=== PATIENT | male | born 1990 | race Caucasian/White ===

== ENCOUNTER 2022-10-19 19:50 | Emergency (ER) | payer OTHER, SELFPAY ==
[2022-10-19 20:09] VITALS: BP 138/91; PULSE 65; RESP 16; TEMP 36.6; O2SAT 98; BMI 30.1
--- NOTE | 2022-10-19 20:36 | ED.UPPEXIN ---
HPI - Extremity Injury (Upper) General Chief Complaint: Extremity Pain/Injury, Upper Stated Complaint: Possible torn bicep Time Seen by Provider: 10/19/22 20:07 History of Present Illness HPI narrative: This 32-year-old male comes in with an injury to his left upper extremity. 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 He has a deformity typical of a biceps rupture. He does not report any other injury. Related Data Home Medications Medication Instructions Recorded Confirmed dextroamphetamine-amphetamine 30 30 mg PO DAILY 10/19/22 10/19/22 mg tablet (Adderall) Previous Rx's Medication Instructions Recorded hydrocodone 5 mg-acetaminophen 325 1 tab PO Q4-6H PRN pain #15 tabs 10/19/22 mg tablet Allergies Allergy/AdvReac Type Severity Reaction Status Date / Time No Known Drug Allergies Allergy Verified 10/19/22 20:09 Review of Systems Status of ROS: Reports: 10 or more systems reviewed and unremarkable except as noted in History and below Narrative: Constitutional: No fevers, no weight gain or loss. Eyes: No discharge. No vision changes. HENT: No congestion, no sore throat, no ear pain. Cardiovascular: No chest pain, no palpitations. Respiratory: No shortness of breath, no wheezes, no cough. Gastrointestinal: No abdominal pain, no vomiting, no diarrhea. Genitourinary: No dysuria, no hematuria. Musculoskeletal: Left bicep it injury as described above. Skin: No rashes, no pruritis. Neurological: No dizziness, weakness, sensory change, speech change. Endo/Heme/Allergies: No bruising or bleeding. No polydipsia. Pysch: no suicidality, no anxiety, no insomnia. All other systems reviewed and are negative. Exam Narrative: Exam Narrative: Constitutional: Well-developed, well-nourished, no acute distress. HEENT: Normocephalic, atraumatic. Neck: Normal range of motion. Nontender. Supple. Heart: Regular. No murmurs. Normal rate. Intact distal pulses. Lungs: Clear to auscultation. No chest discomfort. No wheezes, rhonchi, or rales. Abdomen: Normal bowel sounds. Nontender. No rebound tenderness. Genitalia: Deferred. Back: No midline tenderness. Normal range of motion. Extremities: Pain in the distal portion of the left biceps mechanism. There is a palpable step-off at the biceps tendon near the elbow. The belly of the muscle remains contracted in the more proximal portion of the anterior upper extremity despite extending his arm at the elbow. Skin: Intact. No rash. Warm. No erythema or pallor. Neurologic: No altered sensation. No weakness. Alert and oriented. Psychiatric: No suicidality. No anxiety or depression. No insomnia. Nursing notes and vitals signs are reviewed. Const: Vital Signs, click to edit/add: Vital Signs - 24 hr 10/19/22 20:09 Temperature 97.8 F Pulse Rate [Pulse Oximeter] 65 Respiratory Rate 16 Blood Pressure [Ri t Upper Arm] 138/91 H Pulse Oximetry 98 Oxygen Delivery Me thod Room Air Course Vital Signs Vital signs: Initial Vital Signs Temperature 97.8 F 10/19/22 20:09 Temperature Source Temporal Artery Scan 10/19/22 20:09 Pulse Rate 65 10/19/22 20:09 Respiratory Rate 16 10/19/22 20:09 Blood Pressure 138/91 H 10/19/22 20:09 Blood Pressure Mean 106 H 10/19/22 20:09 Pulse Oximetry 98 10/19/22 20:09 Oxygen Delivery Method Room Air 10/19/22 20:09 Vital Signs Temperature 97.8 F 10/19/22 20:09 Pulse Rate 65 10/19/22 20:09 Respiratory Rate 16 10/19/22 20:09 Blood Pressure 138/91 H 10/19/22 20:09 Pulse Oximetry 98 10/19/22 20:09 Oxygen Delivery Method Room Air 10/19/22 20:09 Temperature 97.8 F 10/19/22 20:09 Pulse Rate 65 10/19/22 20:09 Respiratory Rate 16 10/19/22 20:09 Blood Pressure 138/91 H 10/19/22 20:09 Pulse Oximetry 98 10/19/22 20:09 Oxygen Delivery Method Room Air 10/19/22 20:09 MDM - Extremity Injury (Upper) MDM Narrative Medical decision making narrative: This patient comes in with an injury suggestive of a biceps tendon rupture. I did use bedside ultrasound to compare left with right and there is a step-off noted near the elbow aspect of the biceps mechanism. I spoke with Ortho physician's assistant director of public works semi conductor assembler regarding this injury. The patient will receive a phone call tomorrow to arrange an appointment for evaluation and treatment of this injury. The patient received a sling and prescription for Alpha. Discharge Plan Discharge Clinical Impression: Biceps tendon rupture Patient Disposition: Home w/ Parent or Adult Condition: Unchanged Additional Instructions: Wear sling as needed. Take pain medicine also as needed and directed. Orthopedic clinic staff will call to arrange an appointment for ongoing management. Prescriptions: New hydrocodone-acetaminophen 5-325 mg tablet 1 tab PO Q4-6H PRN (Reason: pain) Qty: 15 0RF No Action dextroamphetamine-amphetamine [Adderall] 30 mg tablet 30 mg PO DAILY Stand Alone Forms: Dr. Jerry's Smooth Move Info Instructions
== END 2022-10-19 20:51 | disposition home or self-care (01) ==
PROVIDERS: Emergency Provider Emergency Medicine Emergency Medical Services
DX: M66.822 Spontaneous rupture of other tendons, left upper arm (principal); X50.0XXA Overexertion from strenuous movement or load, initial encounter
CPT/HCPCS: 99283; 99284

== ENCOUNTER 2022-10-28 06:29 | Day surgery (SDC) | payer OTHER, SELFPAY ==
[2022-10-28] VITALS (13 sets, daily range): BP systolic 111–145; BP diastolic 75–105; PULSE 57–82; RESP 14–18; TEMP 36.1–36.9; O2SAT 95–100; BMI 30.1
--- NOTE | 2022-10-28 | CRLHL7_ITS ---
For Patients: As a result of the Cures Act, medical imaging exams and procedure reports are released immediately into your electronic medical record. You may view this report before your referring provider. If you have questions, please contact your health care provider. Indication: BICEP TENDON REPAIR INTRA OP Technique: Two fluoroscopic images of the left elbow. Fluoroscopic time 14.6 seconds. IMPRESSION: Fluoroscopic guidance for biceps tendon repair. Dictated by Genaro Madrid MD @ 10/28/2022 11:53:51 AM (Electronically Signed)
[2022-10-28] MEDS: SODIUM CHLORIDE 0.9 % (FLUSH) 10 ML SYRINGE IVF (06:45)
[2022-10-28] MEDS: LACTATED RINGERS 1000 ML 1,000 ML 100 ML IV (06:45)
[2022-10-28] MEDS: MIDAZOLAM HCL 1 MG/ML inj IVP (07:24)
[2022-10-28] MEDS: fentaNYL 100 MCG/2 ML inj IVP (07:24)
--- NOTE | 2022-10-28 07:29 | W.PM.H&PU ---
History & Physical Update History & Physical Update H&P Reviewed and patient assessed: No changes noted
--- NOTE | 2022-10-28 07:40 | SUR.PREOP ---
TIME?OUT:?0720 PT/RN/MDA?VERIFICATION?OF?SURGICAL?SITE,?PROCEDURE,?AND?CONSENT OBTAINED?PRIOR?TO?INVASIVE?PROCEDURE.
--- NOTE | 2022-10-28 07:42 | P.ORPRC_ITS ---
Procedure Note Date of procedure: 10/28/22 Procedure: PREOPERATIVE DIAGNOSIS: 1. Left distal biceps rupture POSTOPERATIVE DIAGNOSIS: 1. Left distal biceps rupture PROCEDURE: 1. Left distal biceps repair SURGEON: Leon Balderrama MD. CAROUSEL OPERATOR: Fiorella Gillette P.A.-C. - Of note, an recycling assistant was critical for this case to aid in patient positioning, tissue retraction, limb manipulation/positioning, and closure. ANESTHESIA: General with axillary nerve block IMPLANTS: Arthrex biceps button implant and a 7 mm x 10 mm peek tenodesis screw TOURNIQUET: Not used ESTIMATED BLOOD LOSS: 25 mL COMPLICATIONS: None evident FINDINGS: Distal biceps tendon avulsion with retraction of biceps tendon proximally 5 cm. INDICATIONS: The patient is a pleasant 32-year-old male who sustained a distal biceps tendon avulsion injury while at work a little over week prior to surgery. Recommendation was subsequently made for surgical repair to restore function of the biceps. Prior to surgery, the risks and benefits of procedure were discussed with patient, all questions were answered, and informed consent was obtained. DESCRIPTION OF PROCEDURE: Following a thorough discussion of risks, benefits, and alternatives consent was obtained and the operative site was marked. An axillary nerve block was performed by anesthesia staff. The patient was then brought to the operating room and placed supine on the operating table. Induction of anesthesia was undertaken. IV Ancef was administered within 1 hr o f incision preoperatively for prophylaxis. A tourniquet was placed on the patient's operative arm but was not utilized during the course of procedure. Left upper extremity was then prepped and draped in usual sterile fashion. A surgical time-out was performed confirming patient identity, surgical site, and surgical procedure. A longitudinal incision measuring approximately 4 cm was made on the proximal volar forearm distal to the elbow flexion crease along the ulnar border of the brachioradialis. Blunt dissection was used to dissect through the subcutaneous tissues. Electrocautery was used to achieve hemostasis. The distal biceps tendon was identified and was dissected away from surrounding soft tissues. The end of the tendon was debrided. A #2 FiberLoop suture was then used to whipstitch the distal end of the biceps tendon. After whipstitch was complete, the tendon was able to pass through the 7 mm sizing block. Elbow was then placed in full extension and full supination. Deep dissection was used to expose the radial tuberosity. Radial tuberosity was identified and cleared of soft tissue. After confirming location of the radial tuberosity using fluoroscopy, a 3.2 mm bicortical tunnel was drilled in the radial tuberosity. An 8 mm unicortical tunnel was then drilled over the 3.2 mm guide pin. Guide pin and Reamer were removed. Wound was irrigated with normal saline and bone debris was removed. Sutures were then passed through the biceps button implant. The button campus monitor was used to pass the implant through both cortices of the radial tuberosity and button was flipped and seated on the cortical bone. Fluoroscopic imaging was used to confirm button deployment. Suture ends were then tensioned docking the tendon into the unicortical tunnel. Once the tendon was fully seated, 1 limb of suture was passed through the tendon, and a knot was tied. A 7 mm x 10 mm peek tenodesis screw was loaded over 1 suture limb and was inserted on the radial side of the bone tunnel. Once the tenodesis screw was fully seated, sutures were tied over the top of the screw and remnant suture was cut and removed. Final fluoroscopic images were obtained confirming anatomic location of the biceps button. Wound was again irrigated with normal saline. Wound was then closed with 2-0 Vicryl, 2-0 Stratafix, and 4-0 Stratafix suture followed by Exofin. Sterile dressings were applied followed by a well-padded long-arm posterior splint. Patient was awoken from anesthesia and transferred to the PACU in stable condition. POSTOPERATIVE PLAN: 1. No lifting, pushing, or pulling with the right upper extremity 2. Keep splint clean and dry, wear sling when ambulating as needed for comfort 3. Ice and elevation for pain and swelling 4. [place] or [id number] pain medications as needed for pain control. 5. Follow-up in Orthopedic Clinic in 10-14 days for wound check and splint removal. 6. Will initiate formal physical therapy per the distal biceps tendon repair rehabilitation protocol in 2 weeks.
[2022-10-28] MEDS: CEFAZOLIN 2 GM INJ IVP (07:44)
--- NOTE | 2022-10-28 10:01 | W.ANESCHARGE ---
Anesthesia Charges Start Date/Time Anesthesia Start Date: 10/28/22 Anesthesia Start Time: 07:34 Stop Date/Time Anesthesia Stop Date: 10/28/22 Anesthesia Stop Time: 09:57
--- NOTE | 2022-10-28 10:33 | SUR.PHASEI ---
patient met discharge criteria per anesthesia
--- NOTE | 2022-10-28 10:51 | SUR.PHASEII ---
PATIENT UP TO BATHROOM IMMEDIATELY UPON ARRIVAL TO [facility]. HE IS STEADY ON FEET AND SITTING IN CHAIR AFTER RETURNING FROM BATHROOM.
--- NOTE | 2022-10-28 14:14 | P.NB_ITS ---
Nerve Block Nerve Block Time Seen by Provider: 07:15 Date Seen: 10/28/22 Type of block requested by surgeon for post-operative analgesia: axillary Side: left Time out performed: Yes Verification of patient name: Yes Verification of date of : Yes Site marking: site marked Name of person performing procedure: Anil Edward Continuous monitoring Was continuous monitoring of O2 sat, B/P, conveyor monitor, recorded every 15 minutes?: Yes Procedure Checklist: sterile prep, needles and gloves Ultrasound guided. Images saved: Yes Medications given in 5ml increments after negative aspiration: Ropivicaine %: 0.5 mL: 20 Needle gauge: 20 Decadron (mg): 10 Precedex (mcg): 25 Patient tolerated procedure well: Yes Additional comments: Injected in 5ml increments after negative aspiration Block Charges Block Charge (with Pro Fee): Axillary Nerve Use of Ultrasound Machine for Block: Yes- US Guidance/pain block
== END 2022-10-28 10:58 | disposition home or self-care (01) ==
PROVIDERS: Visit Provider Orthopaedic Surgery
PROC: (CPT 24341; principal; 2022-10-28 07:30)
DX: S46.212A Strain of muscle, fascia and tendon of other parts of biceps, left arm, initial encounter (principal); G89.18 Other acute postprocedural pain
CPT/HCPCS: 24341; 01716; 64417; 73070; 76000; 76942; A4580; C1713; J0690; J1100; J2250; J2405; J2704; J2795; J3010; J7120; L3670

== ENCOUNTER 2023-02-24 08:15 | Day surgery (SDC) | payer OTHER, SELFPAY ==
[2023-02-24] VITALS (12 sets, daily range): BP systolic 102–157; BP diastolic 66–99; PULSE 54–96; RESP 16–20; TEMP 36.1–36.9; O2SAT 95–99; BMI 31.5
--- NOTE | 2023-02-24 08:34 | W.PM.NB ---
Nerve Block Nerve Block Time Seen by Provider: 09:30 Date Seen: 02/24/23 Type of block requested by surgeon for post-operative analgesia: axillary Side: left Time out performed: Yes Verification of patient name: Yes Verification of date of : Yes Site marking: site marked Name of person performing procedure: Wagner Continuous monitoring Was continuous monitoring of O2 sat, B/P, director of workforce development, recorded every 15 minutes?: Yes Procedure Checklist: sterile prep, needles and gloves Ultrasound guided. Images saved: Yes Medications given in 5ml increments after negative aspiration: Ropivicaine %: 0.5 mL: 30 Needle gauge: 22 Patient tolerated procedure well: Yes Additional comments: Needle noted adjacent to nerve Block Charges Block Charge (with Pro Fee): Brachial Plexus Use of Ultrasound Machine for Block: Yes- US Guidance/pain block
--- NOTE | 2023-02-24 08:35 | W.ANESCHARGE ---
Anesthesia Charges Start Date/Time Anesthesia Start Date: 02/24/23 Anesthesia Start Time: 09:36 Stop Date/Time Anesthesia Stop Date: 02/24/23 Anesthesia Stop Time: 14:26
[2023-02-24] MEDS: SODIUM CHLORIDE 0.9 % (FLUSH) 10 ML SYRINGE IVF (08:53)
[2023-02-24] MEDS: LACTATED RINGERS 1000 ML 1,000 ML 100 ML IV ×2 (08:54→14:03)
--- NOTE | 2023-02-24 09:22 | SUR.PREOP ---
TIME?OUT:?09 PT/RN/MDA?VERIFICATION?OF?SURGICAL?SITE,?PROCEDURE,?AND?CONSENT OBTAINED?PRIOR?TO?INVASIVE?PROCEDURE.
[2023-02-24] MEDS: fentaNYL 100 MCG/2 ML inj IVP (09:24)
[2023-02-24] MEDS: MIDAZOLAM HCL 1 MG/ML inj IVP (09:24)
[2023-02-24] MEDS: CEFAZOLIN 2 GM INJ IVP (09:45)
--- NOTE | 2023-02-24 09:45 | W.PM.H&PU ---
History & Physical Update History & Physical Update H&P Reviewed and patient assessed: No changes noted
--- NOTE | 2023-02-24 10:14 | CRLHL7_ITS ---
For Patients: As a result of the Cures Act, medical imaging exams and procedure reports are released immediately into your electronic medical record. You may view this report before your referring provider. If you have questions, please contact your health care provider. Indication: REVISION LT DISTAL BICEPS REPAIR, W/ ALLOGRAFT AUGMENTATION Technique: Two fluoroscopic images of the left elbow. Fluoroscopic time 5.3 seconds. IMPRESSION: Fluoroscopic guidance for biceps tendon repair. Dictated by Genaro Madrid MD @ 02/24/2023 3:09:06 PM (Electronically Signed)
--- NOTE | 2023-02-24 14:04 | P.ORPRC_ITS ---
Procedure Note Date of procedure: 02/24/23 Procedure: Of note, I was called in the middle of the surgery by Dr. Leon Balderrama to come and assist with the left revision open distal biceps repair. History includes that the patient underwent a left open distal biceps repair 09/2022. Unfor tunately, he re-ruptured this 10/2022. Revision distal biceps repair was planned for today, 02/24/2023. During the procedure, significant bleeding was encountered and substantial scarring as it had been proximal 3 months since the re-rupture. It is difficult to identify the proper tendon path and distinguish this from the surrounding vascularity and neurologic structures. Upon my entry to the surgery, dissection had primarily been completed. The biceps muscle belly was identified along with the distal stump that was ruptured nearly at the musculotendinous junction. There was some scarring beyond this. It was difficult to distinguish from the surrounding tissue through the substantial adhesions the scarred state. Eventually, we were able to identify the remnant stump as well as the insertion site which was are identified. The distal screw was removed, remaining tendon whipstitched for identification control. An allograft had already been selected and this was whip stiched on the back table by myself. I prepared the allograft and subsequently was able to help assist Dr. Balderrama with the completion of new distal biceps repair. The allograft was 1st dunked into the previously noted tunnel in the proximal radius at the biceps tuberosity. Remaining allograft was then weaved through the remnant biceps stump of the muscle belly/musculotendinous junction. Multiple Pulvertaft weaves were performed tendon was then sewed back onto itself with a suture tape. Excellent integrity the allograft tendon was then confirmed and to be in proper continuity with the remaining biceps muscle and distal stump. Thorough irrigation normal saline was then. We ensured hemostasis was achieved. I then left the case and ELBA Ochoa completed closure and splinting. A total of 1 hour and 15 minutes was spent assisting by me.
[2023-02-24] MEDS: CEFAZOLIN 2 GM in 0.9 % SODIUM CHLORIDE Mini-bag 100 ML IVPB (14:05)
--- NOTE | 2023-02-24 14:29 | W.ANESCHARGE ---
Anesthesia Charges Start Date/Time Anesthesia Start Date: 02/24/23 Anesthesia Start Time: 09:36 Stop Date/Time Anesthesia Stop Date: 02/24/23 Anesthesia Stop Time: 14:26
[2023-02-24] MEDS: ONDANSETRON 2 MG/ML inj 4 MG IVP (14:34)
[2023-02-24] MEDS: METOCLOPRAMIDE HCL 5 MG/ML INJ 10 MG IVP (14:40)
--- NOTE | 2023-02-24 15:02 | SUR.PHASEII ---
pt up to bathroom.
--- NOTE | 2023-02-24 16:46 | P.ORPRC_ITS ---
Procedure Note Date of procedure: 02/24/23 Procedure: PREOPERATIVE DIAGNOSIS: 1. Recurrent left distal biceps rupture POSTOPERATIVE DIAGNOSIS: 1. Recurrent left distal biceps rupture PROCEDURE: 1. Revision left distal biceps repair/reconstruction with tibialis allograft 2. Hardware removal (Removal of interference screw from proximal radius) 3. Modifier 22 due to extensive scar tissue formation which made the case technically more difficult and necessitated prolonged additional time for surgical dissection. SURGEON: Leon Balderrama MD. HAND METHOD LASTING MACHINE OPERATOR SURGEON: Jonatan Lal MD HAND METHOD LASTING MACHINE OPERATOR: PAULA Ochoa - An executive staff assistant was critical for this case to aid in patient positioning, tissue retraction, limb manipulation /positioning, and closure. ANESTHESIA: General with axillary nerve block IMPLANTS: Arthrex biceps button implant and a 7 mm x 10 mm peek tenodesis screw Anterior tibialis allograft TOURNIQUET: 35 minutes at 250 mmHg ESTIMATED BLOOD LOSS: 50 mL COMPLICATIONS: None evident FINDINGS: Re-rupture of the distal biceps tendon with significant scar tissue formation and adhesions. The endo-button and previously placed peek tenodesis screw were in place however, only a 1 small strand of biceps tendon remained fixed to the radial tuberosity. Biceps tendon and muscle was retracted proximally and distal biceps tendon was significantly degenerated. INDICATIONS: The patient is 32-year-old male who underwent a primary right distal biceps repair in September 2022. Postoperatively, he aggravated his elbow while getting out of bed and developed increased elbow pain. Initial x-rays were reassuring, however, patient's pain and function did not improve. He subsequently underwent an MRI which demonstrated a re-rupture of his distal biceps tendon. Recommendation was subsequently made for revision repair of the distal biceps with possible allograft tendon reconstruction to restore function of the biceps. Prior to surgery, the risks and benefits of procedure were discussed with patient, all questions were answered, and informed consent was obtained. DESCRIPTION OF PROCEDURE: Following a thorough discussion of risks, benefits, and alternatives consent was obtained and the operative site was marked. An axillary nerve block was then performed by anesthesia staff. The patient was brought to the operating room and placed supine on the operating table. Induction of anesthesia was undertaken. IV Ancef was administered within 1 hr of incision preoperatively for prophylaxis. Left upper extremity is then prepped and draped in usual sterile fashion. A surgical time-out was performed confirming patient identity, surgical site, and surgical procedure. A longitudinal incision measuring 4 cm was made on the proximal volar forearm distal to the elbow flexion crease along the ulnar border of the brachioradialis in line with the previous surgical scar. Blunt dissection was used to dissect through the subcutaneous tissues. Significant scar tissue and adhesions were encountered and meticulous dissection was performed with care made to preserve and protect all neurovascular structures. The lateral antebrachial cutaneous nerve was identified and was protected throughout the course of procedure. Several crossing veins and branches the brachial artery were encountered within the adhesions. To complete the dissection and expose the radial tuberosity a few of these were tied and ligated. Some bleeding was encountered during this portion of the procedure and a sterile tourniquet was applied and inflated to allow for adequate visualization and hemostasis. After the vessels were ligated and tied, the tourniquet was released and no further bleeding was identified. Total tourniquet time was 35 minutes. Once the radial tuberosity was identified it was debrided of soft tissue. The sutures from the previously placed Endobutt on were all were identified and only 1 small portion of the biceps tendon remains attached. The previously placed peak tenodesis screw was subsequently removed and old suture was cut and removed. Once it was confirmed that the biceps tendon had re-ruptured and was retracted the previously made incision was extended transversely across the elbow flexion crease and proximally over the distal biceps muscle along the anterior medial aspect of the upper arm. Blunt dissection was used to dissect through the deep subcutaneous tissues. The distal biceps muscle belly and musculotendinous junction were identified. The distal biceps tendon was then carefully dissected and mobilized from the surrounding soft tissues. Again care was taken to protect the surrounding neurovascular structures. A 2 FiberWire tag stitch was placed at the musculotendinous junction to provide some traction and aid in mobilizing the distal aspect of the biceps muscle. The remnant stump of the biceps tendon was then identified and dissected from the surrounding soft tissues. The quality of the tissue was quite poor a decision was made to proceed with reconstruction using tibialis allograft tendon. The allograft was thawed and 1 end of the tendon was whipstitched with a 2. FiberWire suture. The distal tendon it passed through an 8.0 mm sizing guide. Attention was then returned to the previously-made bone socket. The bone socket was debrided of soft tissue using a curette. The 3.2 mm drill was then used to drill out the posterior cortex of the radial tuberosity. The guide pin was removed and the wound was irrigated with normal saline. Sutures from the allograft tendon were then passed through the biceps button implant. The button museum preparator was used to pass the implant through both cortices of the radial tuberosity and button was flipped and seated on the cortical bone. Fluoroscopic imaging was used to confirm button deployment. The previously placed biceps button was left in place. Suture ends were then tensioned docking the allograft tendon into the unicortical tunnel. Once the tendon was fully seated, 1 limb of suture was passed through the tendon, and a knot was tied. A 7 mm by 10 mm peek tenodesis screw was loaded over 1 suture limb and was inserted on the radial side of the bone tunnel. Once the tenodesis screw was fully seated, sutures were tied over the top of the screw and remnant suture was cut and removed. The proximal aspect of the allograft was then weaved through the distal biceps muscle and musculotendinous junction. Multiple Pulvertaft weaves were performed through the tendon and the tendon was then sewed back onto itself using FiberTape with the elbow in 30? of flexion. The remnant biceps tendon was also incorporated into the repair. After completion of the repair the allograft tendon was confirmed to be well fixed to the distal biceps tendon musculotendinous junction and well fixed to its insertion site in the radial tuberosity. Wound was again irrigated with normal saline. Wound was then closed with 2-0 Vicryl, 2-0 Stratafix, and 4-0 Stratafix suture followed by Exofin. Sterile dressings were applied followed by a well-padded long-arm posterior splint. Patient was awoken from anesthesia and transferred to the PACU in stable condition. POSTOPERATIVE PLAN: 1. No lifting, pushing, or pulling with the right upper extremity 2. Keep splint clean and dry, wear sling when ambulating as needed for comfort 3. Ice and elevation for pain and swelling 4. [place] or [id number] pain medications as needed for pain control. 5. Follow-up in Orthopedic Clinic in 10-14 days for wound check and splint removal. 6. Will initiate formal physical therapy per the distal biceps tendon repair rehabilitation protocol in 2 weeks.
== END 2023-02-24 15:45 | disposition home or self-care (01) ==
PROVIDERS: Visit Provider Orthopaedic Surgery
PROC: (CPT 24341; principal; 2023-02-24 09:30)
DX: S46.212A Strain of muscle, fascia and tendon of other parts of biceps, left arm, initial encounter (principal); L90.5 Scar conditions and fibrosis of skin; G89.18 Other acute postprocedural pain
CPT/HCPCS: 24342; 01716; 64415; 73090; 76000; 76942; A4580; C1713; C1762; J0690; J1100; J2250; J2371; J2405; J2704; J2765; J3010; J7120

== ENCOUNTER 2023-07-19 15:15 | Outpatient (RCR) | payer OTHER, SELFPAY ==
--- NOTE | 2022-11-17 15:25 | PT.OPE ---
PT [place] Outpatient Eval PT [facility] Outpatient Eval Start: 11/17/22 12:58 Freq: Status: Active Protocol: Document 11/17/22 15:15 CJT (Rec: 11/17/22 15:24 CJT [id number]) E-signed By Javier Carpio PT Physical Therapy Outpatient Evaluation Insurance Information Recert Due Date 02/15/23 Insurance Name Workman's Comp Medical Diagnosis S46.212A - strain of muscle, fascia, and tendon of other parts of biceps, Left arm Treating Diagnosis M25.522 - L elbow pain M79.602 - L arm pain Z47.89 - orthopedic aftercare Referring Fiorella Young, [place] Subjective Subjective Pt presents 3 weeks post-op L distal biceps tendon repair. Pt is struggling to manage his pain with current meds. Is only sleeping 1-2 hours before waking due to discomfort, pain, positioning. Has been wearing his sling at all times and performing some elbow flexion/extension exercises a few times daily. This is Will' first injury and first major surgery and he reports that he is frustrated with his lack of function at this time although understands that he needs to give his body time to heal. Pt is an avid exercises and weightlifter. Is eager to return to working out as soon as possible. Pt served in the [employer] for 8.5 years. Currently works in the [employer] at [employer] (this is where his injury occurred). This is a Workman's Comp claim . Pain Comments Date of Last Physician Visit 11/10/22 Current Work Status Short Term Disability Occupation [employer] [place] Preferred Name Will Precautions Treatment Precautions/Contraindications DOS: 10/28/22 Therapy Limitations/Systems Review Not Limited Objective Other/Pertinent Objective L elbow ROM: 15-120 R elbow ROM: 0-170 Incision: surgical glue still in tact with scabbing; site of incision is absent of redness , drainage QuickDASH: 86% disability Assessment Assessment/Impression Darryl is a very pleasant 32 year old male who presents to our clinic 3 weeks post-op L distal biceps tendon repair. Pt presents in sling today. Chief complaint of pain throughout his entire arm; some numbness noted in digits 2-5 and medial L elbow. Pts incision appears to be healing well and he is abiding by his restrictions at this. Exercises were reviewed and performed today; pt notes approx 6/10 pain with all exercises involved with moving his L elbow, but notes that this is tolerable. I do anticipate seeing Will for treatment for the next 4 months to allow for appropriate healing and rehabilitation of his distal biceps repair. The nature of the pts condition was explained and all questions were answered to the pts satisfaction. Skilled PT services are medically necessary to address deficits and return patient to highest level of function. Recommend physical therapy sessions 2/ week for 12 weeks. Pt agrees with this plan. Printout of HEP was given for I completion and pt gives verbal understanding of each exercise . Primary Functional Limitations Lifting, reaching, grasping, sleeping Plan of Care Rehabilitation Potential Excellent Physical Therapy Goals STG - To be completed in 2-3 weeks: 1. Pt will report continued use of sling at all times with exception of showering and exercise performance to allow for appropriate healing of surgical repair. 2. Pt will report consistent use of ice, elevation to allow for reduced inflammation in pts L arm. 3. Pt will report pain management without use of opioids to reduce risk of dependence. LTG - To be completed in 12+ weeks: 1. Pt to be I with HEP so that he may I manage progression of symptoms. 2. Pt will demo 0-160 degrees L elbow AROM to allow for donning/doffing shirts and sweaters with minimal compensations. 3. 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 4. Pt will report max 2/10 pain in L arm with all activities and exercises so that he may return to recreational exercise to improve his physical fitness. 5. Pt will report ability to sleep throughout the night without waking due to pain to wake well-rested with reduced mental fatigue during working hours. Treatment Plan/Direct Interventions Electrical Stimulation,Heat, Ice/Cold/Vasopneumatic,Joint Mobilization,Manual Therapy, Neuromuscular Re-ed,Self-Care/ Home Management,Therapeutic Exercises Frequency/Duration 2/week for 12 Patient Will Be Discharged From Therapy Completion of LTG(s),Skills Plateau,Independent w/HEP, Independently Progressing Evaluation Billing Untimed Code Treatment Minutes 38 PT Eval No Charge No Complexity Low Certification Information Initial Certification Date 11/17/22 Ending Certification Date 02/15/23 Provider Signature Shows Agreement With POC & Medical Necessity Physician Signature & Date Requested Please Sign/Date Here Physician Comment/Change : Physician NPI Number #
--- NOTE | 2022-12-06 13:47 | PT.OPDN ---
PT [place] Outpatient Daily Note PT [facility] Outpatient Daily Note Start: 11/17/22 12:58 Freq: Status: Active Protocol: Document 12/06/22 13:00 CJT (Rec: 12/06/22 13:47 CJT [id number]) E-signed By Javier Carpio, PT PT OP Daily Progress Note Visit Information Note Type Daily Note Visit Number 5 Insurance Authorized Visits 24 Physician Authorized Visits eval and treat Insurance Information Recert Due Date 02/15/23 Insurance Name Norma Banuelos Medical Diagnosis S46.212A - strain of muscle, fascia, and tendon of other parts of biceps, Left arm Treating Diagnosis M25.522 - L elbow pain M79.602 - L arm pain Z47.89 - orthopedic aftercare Referring Fiorella Young, [place] Subjective Subjective Pt reports an incident in which he was sitting up from bed and using his hands to push off of the bed to stand up. Pt felt a strong pull in his L biceps tendon followed by a pop. Pt did have pain following but denies bruising and swelling. Pt is very fearful at this time that he may have ruptured his repaired biceps tendon. Preferred Name Will Precautions Treatment Precautions/Contraindications DOS: 10/28/22 Home Exercise Home Exercise Comments [id number] Objective Other/Pertinent Objective Pts L biceps remains sore with palpation. Pts biceps tendon does feel as if it is still in tact. Pt can supinate forearm and flex the elbow wihtout difficulty. Patient Instructed in Risks/Benefits Yes Therapeutic Exercise Therapeutic Exercise Minutes (minutes) 4 Therapeutic Exercise: To Restore Elbow flexion/extension AROM x Functional Status 20 Short lever arm press x 15 Manual Therapy Techniques Manual Therapy Minutes (minutes) 35 Manual Therapy Techniques STM performed to L scalenes, [place], levator, pec minor/major, LHBT, biceps mm belly, CET, thoracic paraspinals, rhomboids, infraspinatus, teres group, lats, and serratus anterior to reduce tissue tension and improve extensibility. Treatment Minutes Timed Code Treatment Minutes 39 Total Treatment Time 39 Billing Units Manual Therapy Units 3 Assessment/Impression Assessment/Impression Pts distal biceps tendon repair does appear to be in tact following his incident last Monday. I did reach out to Dr. Balderrama's team to see if Will could be evaluated later today and they agree. Pt is able to supinate his forearm and flex his elbow without difficulty. I personally was able to palpate his distal biceps tendon during these motions and the tendon feels to be in tact, however, I do prefer that he is re-evaluated by Dr. Balderrama to determine if further evaluation is necessary. Pt is set to return to our clinic for follow up this . Plan of Care Physical Therapy Goals STG - To be completed in 2-3 weeks: 1. Pt will report continued use of sling at all times with exception of showering and exercise performance to allow for appropriate healing of surgical repair. NOT MET - pt denies sling use (11/24/22) 2. Pt will report consistent use of ice, elevation to allow for reduced inflammation in pts L arm. 3. Pt will report pain management without use of opioids to reduce risk of dependence. LTG - To be completed in 12+ weeks: 1. Pt to be I with HEP so that he may I manage progression of symptoms. 2. Pt will demo 0-160 degrees L elbow AROM to allow for donning/doffing shirts and sweaters with minimal compensations. 3. 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 4. Pt will report max 2/10 pain in L arm with all activities and exercises so that he may return to recreational exercise to improve his physical fitness. 5. Pt will report ability to sleep throughout the night without waking due to pain to wake well-rested with reduced mental fatigue during working hours. Daily Plan of Care Continue per POC Recertification Information Provider Signature Shows Agreement With POC & Medical Necessity
--- NOTE | 2023-06-08 09:08 | PT.OPDN ---
[facility] Daily [facility] Daily Note Start: 11/17/22 12:58 Freq: Status: Active Protocol: Document 06/07/23 15:25 CJT (Rec: 06/07/23 16:30 CJT [id number]) E-signed By Javier Carpio, PT PT OP Daily Progress Note Visit Information Note Type Daily Note Visit Number 9 Insurance Authorized Visits 24 Physician Authorized Visits eval and treat Insurance Information Recert Due Date 02/15/23 Insurance Name Norma Banuelos Medical Diagnosis S46.212A - strain of muscle, fascia, and tendon of other parts of biceps, Left arm Treating Diagnosis M25.522 - L elbow pain M79.602 - L arm pain Z47.89 - orthopedic aftercare Referring Fiorella Young, [place] Subjective Subjective Pt reports no change in symptoms. Continues to have pain in his L elbow, forearm, wrist, and hand. Pt also thinks his biceps looks like it has torn again but doesn't think there was a specific time when this would have happened. Will later told me that two days after his last PT session (approximately June 01) his daughter was about to roll of of their bed and he pushed up with both hands off of his bed and felt immediate pain in his L biceps . Preferred Name Will; Seble: Renée Precautions Treatment Precautions/Contraindications DOS: 02/24/23 Per Surgeon Protocol: Weeks 6- 12 ? Increase functional UE strength ? Gradually increase lifting loads focusing on form, control, and tissue tolerance ? Week 12: Initiate isometric biceps and progress to isotonics as able - Continuation cuff/scapular strengthening o Open and closed kinetic chain - Cardiovascular fitness o Treadmill, elliptical with arm us Home Exercise Home Exercise Comments [id number] Objective Other/Pertinent Objective QuickDASH: 86% Disability Patient Instructed in Risks/Benefits Yes Therapeutic Exercise Therapeutic Exercise Minutes (minutes) 20 Therapeutic Exercise: To Restore UBE x 5 minutes Functional Status Hammer curl 3 x 10, 4#, 6#, 6# Barbell curl, 5# 3 x 10 Goblet hold, 25# 2 x 30 Elbow extension stretch in supine 2 x 60 Manual Therapy Techniques Manual Therapy Minutes (minutes) 20 Manual Therapy Techniques IASTM and STM to biceps, anterior forearm, and scar tissue to reduce tissue tension and improve extensibility. Assisted elbow extension stretch, 6 x 30 second hold to improve ROM. Treatment Minutes Timed Code Treatment Minutes 40 Total Treatment Time 40 Billing Units Manual Therapy Units 1 Therapeutic Exercise Units 2 Assessment/Impression Assessment/Impression Pt tolerates treatment fair. Pt would like to follow-up with orthopedics again to discuss potential re-rupture of L biceps tendon. Darryl again had an episode similar to his last where he quickly pushed up from the edge of his bed with both hands and felt immediate high pain in his L biceps. He did not feel a pop in his biceps this time however. [place]'s sign was mildly positive today on L. There is also a visible peak to his L biceps with supination of the L forearm. To the best of my knowledge I do no think that Darryl has retorn his repaired biceps, but cannot be 100% certain. Darryl did have a second-opinion scheduled with Dr. Santiago with [facility] this past Monday, however, this appointment was rescheduled by [facility] last minute and is now set for 06/24/23. This appointment was to discuss the continued pain that Darryl has had in his arm since his initial surgery. I've encouraged Darryl to call our orthopedics department to schedule a follow-up. He continues to have a high amount of pain throughout his entire L UE. This pain is unchanged since his initial surgery on 10/28/22. We have tried ice, estim, and STM with hopes of reducing his pain but these have been minimally effective interventions. Recommend continued PT services to address deficits and return pt to highest level of function. Plan of Care Physical Therapy Goals STG - To be completed in 2-3 weeks: 1. Pt will report continued use of sling at all times with exception of showering and exercise performance to allow for appropriate healing of surgical repair. NOT MET - pt denies sling use (11/24/22) 2. Pt will report consistent use of ice, elevation to allow for reduced inflammation in pts L arm. 3. Pt will report pain management without use of opioids to reduce risk of dependence. LTG - To be completed in 12+ weeks: 1. Pt to be I with HEP so that he may I manage progression of symptoms. 2. Pt will demo 0-160 degrees L elbow AROM to allow for donning/doffing shirts and sweaters with minimal compensations. 3. 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 4. Pt will report max 2/10 pain in L arm with all activities and exercises so that he may return to recreational exercise to improve his physical fitness. 5. Pt will report ability to sleep throughout the night without waking due to pain to wake well-rested with reduced mental fatigue during working hours. Daily Plan of Care Continue per POC
== END 2023-09-26 15:22 | disposition home or self-care (01) ==
PROVIDERS: Visit Provider Orthopaedic Surgery
DX: S46.212A Strain of muscle, fascia and tendon of other parts of biceps, left arm, initial encounter (principal); M25.522 Pain in left elbow; M79.602 Pain in left arm; Z47.89 Encounter for other orthopedic aftercare; Z51.89 Encounter for other specified aftercare
CPT/HCPCS: 97032; 97035; 97110; 97112; 97140; 97161; 97164; 97530